=== PATIENT | female | born 1935 | race Native Hawaiian/Other Pacific Islander ===

== ENCOUNTER 2016-06-21 15:13 | Outpatient (CLI) | payer OTHER ==
[~2016-06-21 15:13] MED LIST: CELEBREX200 MG PO; LEVO0.08 PO; LISI5TAB10 PO; LYRICA75 MG OR; OMEP20CA PO; TRIM800T12 PO
[2016-08-24] MEDS ORDERED: TEMA30CA18 PO (14:12)
[2016-08-24] MEDS ORDERED: DYMISTA1 SPR (14:13)
[2016-08-24] MEDS ORDERED: DONE5TAB PO (14:14)
[2016-08-24] MEDS ORDERED: NUCYNTA50 MG PO (14:25)
[2016-08-24] MEDS ORDERED: DITROPAN XL10 MG PO (14:26)
[2016-08-24] MEDS ORDERED: ESTR0.6211 VAG (14:28)
[2016-08-25] MEDS ORDERED: CELEBREX200 MG PO (12:07)
[2016-08-25] MEDS ORDERED: LISI5TAB10 PO (12:08)
[2016-08-25] MEDS ORDERED: LYRICA75 MG PO (12:08)
[2016-08-25] MEDS ORDERED: OMEP20CA PO (12:11)
== END 2016-06-21 19:21 | disposition home or self-care (01) ==
LOC: LAB 15:13
DX: N39.0 Urinary tract infection, site not specified (principal)
CPT/HCPCS: 87077; 87086; 87088; 87186

== ENCOUNTER 2016-07-05 13:34 | Outpatient (CLI) | payer OTHER ==
[2016-08-24] MEDS ORDERED: TEMA30CA18 PO (14:12)
[2016-08-24] MEDS ORDERED: DYMISTA1 SPR (14:13)
[2016-08-24] MEDS ORDERED: DONE5TAB PO (14:14)
[2016-08-24] MEDS ORDERED: NUCYNTA50 MG PO (14:25)
[2016-08-24] MEDS ORDERED: DITROPAN XL10 MG PO (14:26)
[2016-08-24] MEDS ORDERED: ESTR0.6211 VAG (14:28)
[2016-08-25] MEDS ORDERED: CELEBREX200 MG PO (12:07)
[2016-08-25] MEDS ORDERED: LISI5TAB10 PO (12:08)
[2016-08-25] MEDS ORDERED: LYRICA75 MG PO (12:08)
[2016-08-25] MEDS ORDERED: OMEP20CA PO (12:11)
== END 2016-07-05 19:40 | disposition home or self-care (01) ==
LOC: LAB 13:34
DX: N39.0 Urinary tract infection, site not specified (principal)
CPT/HCPCS: 87077; 87086; 87088; 87186

== ENCOUNTER 2016-07-10 10:04 | Outpatient (CLI) | payer OTHER ==
[2016-08-24] MEDS ORDERED: TEMA30CA18 PO (14:12)
[2016-08-24] MEDS ORDERED: DYMISTA1 SPR (14:13)
[2016-08-24] MEDS ORDERED: DONE5TAB PO (14:14)
[2016-08-24] MEDS ORDERED: NUCYNTA50 MG PO (14:25)
[2016-08-24] MEDS ORDERED: DITROPAN XL10 MG PO (14:26)
[2016-08-24] MEDS ORDERED: ESTR0.6211 VAG (14:28)
[2016-08-25] MEDS ORDERED: CELEBREX200 MG PO (12:07)
[2016-08-25] MEDS ORDERED: LYRICA75 MG PO (12:08)
[2016-08-25] MEDS ORDERED: LISI5TAB10 PO (12:08)
[2016-08-25] MEDS ORDERED: OMEP20CA PO (12:11)
== END 2016-07-10 19:24 | disposition home or self-care (01) ==
LOC: LABW 10:04
PROVIDERS: Internal Medicine Cardiovascular Disease
DX: E78.4 Other hyperlipidemia (principal); Z09 Encounter for follow-up examination after completed treatment for conditions other than malignant neoplasm
CPT/HCPCS: 36415; 80061; 80076

== ENCOUNTER 2016-08-23 16:16 | Outpatient (CLI) | payer OTHER ==
[2016-08-24] MEDS ORDERED: TEMA30CA18 PO (14:12)
[2016-08-24] MEDS ORDERED: DYMISTA1 SPR (14:13)
[2016-08-24] MEDS ORDERED: DONE5TAB PO (14:14)
[2016-08-24] MEDS ORDERED: NUCYNTA50 MG PO (14:25)
[2016-08-24] MEDS ORDERED: DITROPAN XL10 MG PO (14:26)
[2016-08-24] MEDS ORDERED: ESTR0.6211 VAG (14:28)
[2016-08-25] MEDS ORDERED: CELEBREX200 MG PO (12:07)
[2016-08-25] MEDS ORDERED: LISI5TAB10 PO (12:08)
[2016-08-25] MEDS ORDERED: LYRICA75 MG PO (12:08)
[2016-08-25] MEDS ORDERED: OMEP20CA PO (12:11)
== END 2016-08-23 16:18 | disposition short-term general hospital (02) ==
LOC: AMB 16:16
DX: R07.89 Other chest pain (principal)
CPT/HCPCS: A0425; A0429

== ENCOUNTER 2016-08-23 16:32 | Inpatient (IN) | payer OTHER ==
[~2016-08-23] VITALS: Ht 165.1 cm; Wt 47.8 kg
[2016-08-23 18:37] LABS: PLATELET COUNT 192 K/uL (152-353)
[2016-08-23 19:04] LABS: POTASSIUM 3.5 mmol/L (3.6-5.2); SODIUM 137 mmol/L (136-145)
[2016-08-23 19:42] VITALS: BP 156/69; TEMP 97.9; Ht 165.1 cm; Wt 47.8 kg
[2016-08-23 20:00] VITALS: BP 141/75; TEMP 98.2
[2016-08-24] VITALS (17 sets, daily range): BP systolic 121–166; BP diastolic 59–82; TEMP 97–98.3
--- NOTE | 2016-08-24 04:30 | NUR ---
81 Y.O. FEMALE RECEIVED VIA BED TO ICU BED 3 FROM MEDICAL SURGICAL FLOOR. PT WITH DIAGNOSIS OF ACUTE DYSNEA AND CHEST PAIN. DR. BLAS AT BEDSIDE. MONITORS APPLIED.
--- NOTE | 2016-08-24 04:35 | NUR ---
RADIOLOGY PRESENT FOR CHEST X-RAY.
[2016-08-24 04:43] LABS: POTASSIUM 3.6 mmol/L (3.6-5.2); SODIUM 138 mmol/L (136-145)
--- NOTE | 2016-08-24 04:55 | NUR ---
ATIVAN 0.5MG IV ORDERED.
--- NOTE | 2016-08-24 05:17 | NUR ---
SISTER AT BEDSIDE. DR. BLAS TALKING WITH PT AND SISTER. ORDER RECEIVED.
--- NOTE | 2016-08-24 05:45 | NUR ---
IV BOLUS OF 250CC'S NORMAL SALINE INITIATED.
--- NOTE | 2016-08-24 05:50 | NUR ---
08/24/16 AT 0340PT CALLED AND STATES SHE IS FEELING FAINT, WEAK, AND WOKE UP FEELING LIKE HER HEART IS RACING. PT ALERT AND ORIENTED WITH NO ACUTE DISTRES NOTED. 144/79, PULSE 62, RESP RATE 20 EVEN/NONLABORED, 99% ON 2LPM VIA NC. PT GOT UP TO BATHROOM AROUND 0350 AND PULSE RATE GOT SLIGHTLY TACHYCARDIC AT 103-110 BUT PULSE RATE BACK IN HIGH 50S AND LOW 60S ONCE PT BACK IN BED. LUNG CLEAR TO AUSCULTATION. CONTINUING TO MONITOR.
--- NOTE | 2016-08-24 05:53 | NUR ---
08/24/16 AT 0352PT STATES SHE IS FEELING BETTER, WILL CONTINUE TO MONITOR.
--- NOTE | 2016-08-24 05:54 | NUR ---
08/24/16 AT 0405DRMauricio BLAS IN ER NOTIFIED DUE TO PT FEELING BAD AGAIN, STATES SHE FEELS LIKE SHE IS GOING TO PASS OUT AND LIKE SHE IS "GOING TO ", PULSE RATE REMAINS IN HIGH 50S TO LOW 60S, WITH NO OTHER CHANGES NOTED.
--- NOTE | 2016-08-24 05:55 | NUR ---
08/24/16 AT 0410DRMauricio BLAS AT BEDSIDE ASSESSING PT. WAITING FOR NEW ORDERS.
--- NOTE | 2016-08-24 05:56 | NUR ---
08/24/16 AT 0418DR. BLAS BACK AT BEDSIDE AGAIN WITH PT. STATES SHE IS HAVING CHEST PAIN THAT FEELS LIKE "PRESSURE" IN CENTER OF HER CHEST, RATES PAIN A "7" AND CONSTANT. STAFF REMAIN AT BEDSIDE. 0425 DR REMAINS AT BEDSIDE AND RESP ATTEMPTING ABG PER NEW ORDERS. NEW ORDERS WRITTEN PER DR. BLAS. WILL CONTINUE TO MONITOR.
--- NOTE | 2016-08-24 05:59 | NUR ---
08/24/16 AT 0430PT MOVED TO ICU BED [address] PER NEW ORDERS OF DR. BLAS. REPORT GIVEN TO ROVERTO PEREZ RN AND SOFIA DEMPSEY RN.
--- NOTE | 2016-08-24 06:14 | NUR ---
TO BEDSIDE COMMODE. UA SPECIMEN OBTAINED. TO LAB.
--- NOTE | 2016-08-24 08:46 | NUR ---
AM ASSESSEMENT PT RESTING IN BED DENIES CHEST PAINS, STATES " I JUST FEEL A LITTLE FUNNY IN MY CHEST" MONITOR SHOWING NSR HR 54. RESP EVEN UNLABORED CLEAR. FAMILY MEMBERS HERE TO VISIT.
[2016-08-24 10:29] LABS: PLATELET COUNT 176 K/uL (152-353)
[2016-08-24 10:59] LABS: POTASSIUM 3.8 mmol/L (3.6-5.2)
--- NOTE | 2016-08-24 11:20 | NUR ---
PT RESTING IN BED NO COMPLAINTS. DR THOMPSON VISITED CHECKED PT RECIEVED ORDERS.
--- NOTE | 2016-08-24 12:10 | NUR ---
DR THOMPSON SPOKE WITH FAMILY MEMBERS.
--- NOTE | 2016-08-24 14:05 | NUR ---
RESTING QUIETLY FAMILY FRIENDS VISITED. NO COMPLAINTS.
[2016-08-24] MEDS ORDERED: TEMA30CA18 PO ×2 (14:12)
[2016-08-24] MEDS ORDERED: DYMISTA1 SPR ×2 (14:13)
[2016-08-24] MEDS ORDERED: DONE5TAB PO ×2 (14:14)
[2016-08-24] MEDS ORDERED: NUCYNTA50 MG PO ×2 (14:25)
[2016-08-24] MEDS ORDERED: DITROPAN XL10 MG PO ×2 (14:26)
[2016-08-24] MEDS ORDERED: ESTR0.6211 VAG ×2 (14:28)
--- NOTE | 2016-08-24 18:18 | NUR ---
PT STABLE TO CT VIA WC.
--- NOTE | 2016-08-24 18:25 | NUR ---
PT STABLE BACK FROM CT VIA WC & TO BSC AT .
--- NOTE | 2016-08-24 19:51 | NUR ---
REPORTED PT'S CT OF CHEST RESULTS TO DR. THOMPSON. NO NEW ORDERS RECEIVED.
--- NOTE | 2016-08-24 20:01 | NUR ---
PT VOIDED 500 ML OF CLEAR NATHAN URINE. SPECIMAN COLLECTED AND SENT TO THE LAB.
--- NOTE | 2016-08-24 21:12 | NUR ---
PT UOB WITH ASSISTANCE TO BSC. PT VOIDED 500 ML OF YELLOW URINE.
[2016-08-25] VITALS (11 sets, daily range): BP systolic 133–167; BP diastolic 70–77; TEMP 97.8
--- NOTE | 2016-08-25 03:03 | NUR ---
PT UOB TO BSC. VOIDED AND THEN BACK TO BED WITH ASSISTANCE. NO COMPLAINTS VOICED,
--- NOTE | 2016-08-25 06:19 | NUR ---
05:25AM WITNESS OT WITH SNORING RESPIRATIONS , EYE JERKING AND PT GRINDING HIS TEETH. O2 SATS DROPPING . ANNE CHONG RN BEGAN AMBUING PT AND LAB PRESENT TO DRAW BLOOD. THIS EVENT REPORTED TO ER PHYSICIAN. ATIVAN 2 MG IVSP GIVEN. SEIZURE LIKE ACTIVITY STOPPED AT 05:28AM. O2 SAT 89 INCREASED TO 93 PERCENT. BP 142/72.
[2016-08-25 06:39] LABS: PLATELET COUNT 161 K/uL (152-353)
--- NOTE | 2016-08-25 08:00 | NUR ---
AM ASSESSMENT COMPLETE.
[2016-08-25] MEDS ORDERED: CELEBREX200 MG PO ×2 (12:07)
[2016-08-25] MEDS ORDERED: LYRICA75 MG PO ×2 (12:08)
[2016-08-25] MEDS ORDERED: LISI5TAB10 PO ×2 (12:08)
[2016-08-25] MEDS ORDERED: OMEP20CA PO ×2 (12:11)
--- NOTE | 2016-08-25 13:05 | NUR ---
DR THOMPSON AT BS
--- NOTE | 2016-08-25 13:24 | NUR ---
MARIPOSA TAVAREZ RN AT BS
--- NOTE | 2016-08-25 13:29 | NUR ---
TB TEST ADMINISTERED BY MARIPOSA HODGE RN TO [facility]
--- NOTE | 2016-08-25 17:45 | NUR ---
FAMILY AT BS
--- NOTE | 2016-08-25 17:50 | NUR ---
PT UP TO BSC.
--- NOTE | 2016-08-25 18:47 | NUR ---
PT TRANSFERRED TO #1120. PT ALERT/ORIENTED
--- NOTE | 2016-08-25 18:47 | NUR ---
IV SITE INTACT, NS @ 100ML/HR
[2016-08-26] VITALS: BP 135/72; TEMP 97.9
--- NOTE | 2016-08-26 01:54 | NUR ---
Pt. C/O CHESTPAIN THAT FEELS LIKE PRESSURE. Pt. HURTING THROUGH TO BACK. 0156 DDR. WAN NOTFIED. NEW ORDER RECEIVED. MOSPHINE 2MG GIVEN IV, ATIVAN 0.5MG GIVEN IV, ZOFRAN 4MG GIVEN IV.
[2016-08-26 04:00] VITALS: BP 155/79; TEMP 98.4
[2016-08-26 05:42] LABS: PLATELET COUNT 156 K/uL (152-353)
[2016-08-26 05:50] LABS: POTASSIUM 3.8 mmol/L (3.6-5.2); SODIUM 141 mmol/L (136-145)
[2016-08-26 08:00] VITALS: BP 167/78; TEMP 98.6
[2016-08-26 12:00] VITALS: BP 147/72; TEMP 97.8
--- NOTE | 2016-08-26 16:54 | NUR ---
@1405 PT SITTING 02 ON ROOM AIR 98-100%, WALKING DOWN HALLWAY 96-100%, AND SITTING ON SIDE OF BED WITH O2@2 100% IV D/C'D TIP INTACT WITHOUT REDNESS OR EDEMA NOTED, D/C INSTRUCTIONS GIVEN, PT DAUGHTER AT BEDSIDE, BOTH STATED UNDERSTANDING OF D/C INSTRUCTIONS. PRESCRIPTIONS GIVEN TO PATIENT. PT DISCHARGED TO HOME@ 1425, TAKEN BY WC ACCOMPANIED BY FAMILY MEMBER AND HEAVEN BURT
== END 2016-08-26 14:15 | disposition home or self-care (01) | DRG 178 ==
LOC: MED/SURG 16:32 → ICU 16:32 → MED/SURG 08-24 04:35 → ICU 08-24 04:35 → MED/SURG 08-24 04:35
PROVIDERS: Emergency Medicine; Specialist; ADMIT Internal Medicine
DX: A31.0 Pulmonary mycobacterial infection (principal); J44.1 Chronic obstructive pulmonary disease with (acute) exacerbation; R07.89 Other chest pain; E11.9 Type 2 diabetes mellitus without complications; I10 Essential (primary) hypertension; R00.1 Bradycardia, unspecified; E03.8 Other specified hypothyroidism; E83.42 Hypomagnesemia; F45.8 Other somatoform disorders; E88.09 Other disorders of plasma-protein metabolism, not elsewhere classified; D64.89 Other specified anemias
CPT/HCPCS: 36415; 36600; 80048; 80053; 80307; 81000; 82550; 82805; 83735; 83880; 84439; 84443; 84484; 85027; 85379; 85610; 85730; 86430; 93005; 94760; 96372; G0479; J1650; J2060; J2270; J2405; J3490; Q9963

== ENCOUNTER 2016-08-31 17:13 | Observation (INO) | payer OTHER ==
[~2016-08-31] VITALS: Ht 165.1 cm; Wt 46.4 kg
[~2016-08-31 17:13] MED LIST changes: +DITROPAN XL10 MG PO; +DONE5TAB PO; +DYMISTA1 SPR; +ESTR0.6211 VAG; +LYRICA75 MG PO; +NUCYNTA50 MG PO; +TEMA30CA18 PO
[2016-08-31 17:20] VITALS: BP 185/91; TEMP 98
[2016-08-31 18:42] LABS: PLATELET COUNT 188 K/uL (152-353)
[2016-08-31 18:43] LABS: SODIUM 126 mmol/L (136-145)
--- NOTE | 2016-08-31 20:50 | NUR ---
Received pt from ER via wheelchair. Report given from Radha Dickinson RN. Pt alert and oriented. No distress noted. Denies pain. NS infusing at 100cc/hr. Assessment completed. Bed in lowest position. Call light within reach. Will continue to monitor.
[2016-08-31 21:44] VITALS: BP 150/79; TEMP 98
[2016-09-01] VITALS: BP 126/69; TEMP 98.8
[2016-09-01 04:00] VITALS: BP 146/76; TEMP 97.8
--- NOTE | 2016-09-01 04:59 | NUR ---
Pt resting in bed. No distress noted. Denies pain. Will continue to monitor.
[2016-09-01 05:54] LABS: PLATELET COUNT 176 K/uL (152-353)
[2016-09-01 06:01] LABS: POTASSIUM 3.9 mmol/L (3.6-5.2)
[2016-09-01 08:00] VITALS: BP 125/68; TEMP 97.9
--- NOTE | 2016-09-01 08:00 | NUR ---
RESTING IN BED HOB UP STATES FEELING BETTER. STATED THAT SHE HAD JUST COME TO HOSPITAL FOR CT SCAN. DENIES PAIN. IV FLUIDS INFUSING WITHOUT DIFFICULTY. PT APPEARS IN NO DISTRESS, AM CARE DONE OFFERED TO ASSIST WITH BRERAKFAST PT NOT EATING STATED THAT SHE WAS NOT HUNGERY. ABD FLAT BOWEL SOUNDS PRESENT.
[2016-09-01 12:00] VITALS: BP 125/68; TEMP 97.9
--- NOTE | 2016-09-01 13:45 | NUR ---
RESTING IN BED TALKING ON PHONE NO ACUTE DISTRESS.. DR THOMPSON VISITED. RECIEVED ORDER FOR URINE CULTURE.
[2016-09-01 15:23] VITALS: BP 158/94; TEMP 98.5
[2016-09-01 20:00] VITALS: BP 129/66; TEMP 98.6
--- NOTE | 2016-09-01 23:07 | NUR ---
PT UP WITH ASSISTANCE TO BR. PT VOIDED. PT STATES THAT SHE HAD A SLEEVE PUT IN FOR URINARY INCONTINENCE. PT VOICED SHE STILL CONTINUES TO DRIBBLE URINE. PROVIDED [employer] FOR PT. ASSISTED PT BACK TO BED. PT WITH NO COMPLAINTS.
[2016-09-02] VITALS: BP 141/81; TEMP 98.5
--- NOTE | 2016-09-02 02:45 | NUR ---
PT WAS GIVEN ORDERED XANAX PO AT 02:00 AM. BED IS I LOW POSITION AND CALL LIGHT IN EASY REACH. INSTRUCTED PT TO CALL FOR ASSISTANCE.
[2016-09-02 04:00] VITALS: BP 119/74; TEMP 97.6
--- NOTE | 2016-09-02 06:00 | NUR ---
PT STATES SHE NOT RESTED WELL TONIGHT. "BEEN UP USING THE BATHROOM ALL NIGHT". DENIES DIZZINESS AT THIS TIME.
--- NOTE | 2016-09-02 07:55 | NUR ---
PT RESTING IN LOW FOWLERS,DENIES DIZZINESS OR PAIN. LABS DRAWN.
[2016-09-02 08:00] VITALS: BP 140/69; TEMP 97.7
[2016-09-02 08:02] LABS: PLATELET COUNT 184 K/uL (152-353)
[2016-09-02 08:20] LABS: SODIUM 137 mmol/L (136-145)
--- NOTE | 2016-09-02 08:51 | NUR ---
LABS DRAWN & TO LABS. PT PLEASANT. DENIES PAIN OR DIZZINESS.
[2016-09-02 12:13] VITALS: BP 127/88; TEMP 97.7
--- NOTE | 2016-09-02 14:45 | NUR ---
DR THOMPSON IN TO SEE PT. PT PLEASANT,'WANTS TO GO HOME.'
--- NOTE | 2016-09-02 15:00 | NUR ---
PT'S IV BEEPING REPEATEDLY.PLACEMENT CK,GOOD BLOOD RETURN. IV IS IN R AC. PT REFUSED TO HAVE NEW IV STARTED,DR THOMPSON NOTIFIED. IV SALINE LOCKED.
--- NOTE | 2016-09-02 16:47 | NUR ---
D/C INSTRUCTIONS GIVEN. PT & DAUGHTER VERBALIZED UNDERSTANDING. IVSALINE LOCK D/C'D CANNULA INTACT.SITE SECURED.
--- NOTE | 2016-09-02 16:50 | NUR ---
PT D/CD STABLE VIA WC TO PRIVATE AUTO PER RAINE ANTUNEZ.
== END 2016-09-02 16:52 | disposition home or self-care (01) ==
LOC: ED 17:13 → MED/SURG 19:25
PROVIDERS: Emergency Medicine; ADMIT Emergency Medicine
DX: R49.22 Hyponasality (principal); R07.89 Other chest pain; R41.82 Altered mental status, unspecified; I10 Essential (primary) hypertension; J44.9 Chronic obstructive pulmonary disease, unspecified; K21.9 Gastro-esophageal reflux disease without esophagitis; E11.9 Type 2 diabetes mellitus without complications; R62.7 Adult failure to thrive; N39.0 Urinary tract infection, site not specified; R91.8 Other nonspecific abnormal finding of lung field
CPT/HCPCS: 36415; 80048; 80053; 81000; 82550; 83735; 84443; 84484; 85027; 87040; 87077; 87086; 87088; 87185; 87186; 93005; 96361; 96365; 96366; 96372; 99220; 99284; G0378; J0696; J1650; J3475; J3480

== ENCOUNTER 2016-09-07 12:49 | Outpatient (CLI) | payer OTHER | END 2016-09-07 19:49 | disposition home or self-care (01) | LOC: RESP 12:49 | DX: R06.02 Shortness of breath (principal) ==

== ENCOUNTER 2016-10-30 10:34 | Outpatient (CLI) | payer OTHER | END 2016-10-30 11:40 | disposition home or self-care (01) | LOC: RAD 10:34 | DX: M25.561 Pain in right knee (principal) ==

== ENCOUNTER 2016-11-01 10:39 | Outpatient (CLI) | payer OTHER | END 2016-11-01 19:15 | disposition home or self-care (01) | LOC: MRI 10:39 | DX: M25.561 Pain in right knee (principal) ==

== ENCOUNTER 2017-08-15 09:07 | Outpatient (CLI) | payer OTHER | END 2017-08-15 21:38 | disposition home or self-care (01) | LOC: RAD 09:07 | DX: Z78.0 Asymptomatic menopausal state (principal); M85.88 Other specified disorders of bone density and structure, other site ==

== ENCOUNTER 2017-09-01 08:53 | Outpatient (CLI) | payer OTHER ==
[2017-09-01 09:25] LABS: POTASSIUM 4.2 mmol/L (3.6-5.2)
== END 2017-09-01 23:04 | disposition home or self-care (01) ==
LOC: LABW 08:53
PROVIDERS: Internal Medicine Cardiovascular Disease
DX: E78.4 Other hyperlipidemia (principal)
CPT/HCPCS: 36415; 80048

== ENCOUNTER 2017-10-17 11:05 | Outpatient (CLI) | payer OTHER | END 2017-10-17 22:07 | disposition home or self-care (01) | LOC: RAD 11:05 | DX: R05 Cough (principal); Z20.1 Contact with and (suspected) exposure to tuberculosis ==

== ENCOUNTER 2018-02-07 11:07 | Outpatient (CLI) | payer OTHER | END 2018-02-07 19:42 | disposition home or self-care (01) | LOC: CT 11:07 | DX: R10.84 Generalized abdominal pain (principal) | CPT/HCPCS: 36415; 82565; 84520; Q9963 ==

== ENCOUNTER 2018-05-03 16:19 | Outpatient (CLI) | payer OTHER | END 2018-05-03 16:39 | disposition short-term general hospital (02) | LOC: AMB 16:19 | DX: M25.551 Pain in right hip (principal); Z91.81 History of falling | CPT/HCPCS: A0425; A0427 ==

== ENCOUNTER 2018-05-03 16:39 | Emergency (ER) | payer OTHER ==
[~2018-05-03] VITALS: Ht 165.1 cm; Wt 44.5 kg
[2018-05-03 21:38] VITALS: BP 150/84; TEMP 97.8
== END 2018-05-03 21:35 | disposition short-term general hospital (02) ==
LOC: ED 16:39
DX: S72.011A Unspecified intracapsular fracture of right femur, initial encounter for closed fracture (principal); W18.39XA Other fall on same level, initial encounter; Y92.89 Other specified places as the place of occurrence of the external cause
CPT/HCPCS: 99285; J2270; J2405

== ENCOUNTER 2018-05-03 21:41 | Outpatient (CLI) | payer OTHER | END 2018-05-03 22:56 | disposition short-term general hospital (02) | LOC: AMB 21:41 | DX: S72.011A Unspecified intracapsular fracture of right femur, initial encounter for closed fracture (principal); W18.39XA Other fall on same level, initial encounter; Y92.89 Other specified places as the place of occurrence of the external cause | CPT/HCPCS: A0425; A0429 ==

== ENCOUNTER 2018-05-29 11:11 | Outpatient (CLI) | payer OTHER | END 2018-05-29 23:59 | disposition home or self-care (01) | LOC: CT 11:11 | DX: G45.9 Transient cerebral ischemic attack, unspecified (principal) | CPT/HCPCS: 36415; 82565; 84520; Q9963 ==

== ENCOUNTER 2018-05-30 11:50 | Outpatient (CLI) | payer OTHER ==
[2018-05-30 13:06] LABS: PLATELET COUNT 366 K/uL (152-353)
[2018-05-30 13:31] LABS: POTASSIUM 4.3 mmol/L (3.6-5.2)
== END 2018-05-30 20:35 | disposition home or self-care (01) ==
LOC: LABW 11:50
PROVIDERS: Internal Medicine
DX: M79.89 Other specified soft tissue disorders (principal); R62.7 Adult failure to thrive; R82.90 Unspecified abnormal findings in urine; R73.9 Hyperglycemia, unspecified; Z79.899 Other long term (current) drug therapy; D64.9 Anemia, unspecified
CPT/HCPCS: 36415; 80053; 81000; 83540; 83735; 84443; 85027; 85379; 85651; 87077; 87086; 87088; 87185; 87186

== ENCOUNTER 2018-05-31 08:49 | Outpatient (CLI) | payer OTHER | END 2018-05-31 09:04 | disposition short-term general hospital (02) | LOC: AMB 08:49 | DX: R55 Syncope and collapse (principal) | CPT/HCPCS: A0425; A0427 ==

== ENCOUNTER 2018-05-31 09:09 | Emergency (ER) | payer OTHER ==
[~2018-05-31] VITALS: Ht 165.1 cm; Wt 44.5 kg
[2018-05-31 10:08] LABS: POTASSIUM 3.9 mmol/L (3.6-5.2)
[2018-05-31 10:18] LABS: PLATELET COUNT 264 K/uL (152-353)
[2018-05-31 17:56] VITALS: BP 102/47; TEMP 98
== END 2018-05-31 18:06 | disposition short-term general hospital (02) ==
LOC: ED 09:09
PROVIDERS: Emergency Medicine
DX: R55 Syncope and collapse (principal); N39.0 Urinary tract infection, site not specified; R53.1 Weakness
CPT/HCPCS: 80053; 85027; 93005; 96360; 96361; 99284

== ENCOUNTER 2018-05-31 18:12 | Outpatient (CLI) | payer OTHER | END 2018-05-31 19:23 | disposition short-term general hospital (02) | LOC: AMB 18:12 | DX: R55 Syncope and collapse (principal); N39.0 Urinary tract infection, site not specified; R53.1 Weakness | CPT/HCPCS: A0425; A0427 ==

== ENCOUNTER 2018-06-04 14:11 | Inpatient (IN) | payer OTHER ==
[~2018-06-04] VITALS: Ht 154.9 cm; Wt 47.6 kg
[2018-06-04 14:13] VITALS: BP 120/65; TEMP 97.5
[2018-06-04 15:57] LABS: PLATELET COUNT 173 K/uL (152-353); POTASSIUM 3.3 mmol/L (3.6-5.2); SODIUM 139 mmol/L (136-145)
[2018-06-04 18:54] LABS: PARTIAL THROMBOPLASTIN TIME 27.7 SECONDS (24.5-33.6)
[2018-06-04 21:58] VITALS: BP 97/50
[2018-06-05 00:31] VITALS: BP 104/58; TEMP 98.4; Ht 154.9 cm; Wt 47.6 kg
[2018-06-05 04:13] LABS: PLATELET COUNT 153 K/uL (152-353)
[2018-06-05 04:27] LABS: POTASSIUM 4.8 mmol/L (3.6-5.2)
[2018-06-05 06:00] VITALS: BP 134/70
[2018-06-05 07:00] VITALS: BP 134/67; TEMP 98.3
[2018-06-05 09:00] VITALS: BP 124/70
== END 2018-06-05 09:45 | disposition short-term general hospital (02) | DRG 176 ==
LOC: ED 14:11 → ICU 21:41
PROVIDERS: Family Medicine; ADMIT Internal Medicine
DX: I26.99 Other pulmonary embolism without acute cor pulmonale (principal); Z96.641 Presence of right artificial hip joint; I25.10 Atherosclerotic heart disease of native coronary artery without angina pectoris; I10 Essential (primary) hypertension; E78.49 Other hyperlipidemia; J44.9 Chronic obstructive pulmonary disease, unspecified; E03.8 Other specified hypothyroidism; E11.9 Type 2 diabetes mellitus without complications; I48.0 Paroxysmal atrial fibrillation; G31.84 Mild cognitive impairment of uncertain or unknown etiology; E83.42 Hypomagnesemia
CPT/HCPCS: 36415; 80053; 81000; 82272; 82550; 83735; 84484; 85027; 85379; 85610; 85730; 93005; 96361; 96365; 96375; 99285; J1644; J3490; Q9963

== ENCOUNTER 2018-06-05 09:40 | Outpatient (CLI) | payer OTHER | END 2018-06-05 10:52 | disposition short-term general hospital (02) | LOC: AMB 09:40 | DX: I26.99 Other pulmonary embolism without acute cor pulmonale (principal); Z96.641 Presence of right artificial hip joint; I25.10 Atherosclerotic heart disease of native coronary artery without angina pectoris; I10 Essential (primary) hypertension; E78.49 Other hyperlipidemia; J44.9 Chronic obstructive pulmonary disease, unspecified; E03.8 Other specified hypothyroidism; E11.9 Type 2 diabetes mellitus without complications; I48.0 Paroxysmal atrial fibrillation; G31.84 Mild cognitive impairment of uncertain or unknown etiology; E83.42 Hypomagnesemia | CPT/HCPCS: A0425; A0427 ==

== ENCOUNTER 2018-06-18 16:13 | Outpatient (CLI) | payer OTHER | END 2018-06-18 23:56 | disposition home or self-care (01) | LOC: LAB 16:13 | DX: N39.0 Urinary tract infection, site not specified (principal) | CPT/HCPCS: 87077; 87086; 87088; 87186 ==

== ENCOUNTER 2018-06-26 10:34 | Outpatient (CLI) | payer OTHER ==
[2018-06-26 11:02] LABS: POTASSIUM 4.2 mmol/L (3.6-5.2)
[2018-06-26 11:03] LABS: PLATELET COUNT 336 K/uL (152-353)
== END 2018-06-26 19:10 | disposition home or self-care (01) ==
LOC: LABW 10:34
PROVIDERS: Internal Medicine
DX: I10 Essential (primary) hypertension (principal); N39.0 Urinary tract infection, site not specified
CPT/HCPCS: 80053; 83735; 85027; 87077; 87086; 87088; 87186

== ENCOUNTER 2018-07-03 11:56 | Outpatient (CLI) | payer OTHER | END 2018-07-03 23:12 | disposition home or self-care (01) | LOC: LABW 11:56 | DX: R53.81 Other malaise (principal); R53.83 Other fatigue | CPT/HCPCS: 36415; 85651; 86038; 86141; 86431 ==

== ENCOUNTER 2018-10-01 08:40 | Outpatient (CLI) | payer OTHER ==
[~2018-10-01 08:40] MED LIST changes: +ASPIRIN 81 LOW81 MG PO; +CENTRUM SILVER PO; +DILT30TA24 PO; +DOCU100C10 PO; +DONEPEZIL HYDRO10 M1 PO; +FENT25DI TD; +MECLIZINE12.5 MG PO; +PANTOPRAZOLE 40MG TA PO
== END 2018-10-01 19:00 | disposition home or self-care (01) ==
LOC: CT 08:40
DX: R10.84 Generalized abdominal pain (principal)
CPT/HCPCS: 36415; 82565; 84520

== ENCOUNTER 2018-12-31 09:01 | Outpatient (CLI) | payer OTHER ==
[2018-12-31 09:54] LABS: PLATELET COUNT 249 K/uL (152-353)
[2018-12-31 10:12] LABS: POTASSIUM 3.9 mmol/L (3.6-5.2)
== END 2018-12-31 23:16 | disposition home or self-care (01) ==
LOC: LABW 09:01
PROVIDERS: Internal Medicine
DX: R29.6 Repeated falls (principal); F03.90 Unspecified dementia, unspecified severity, without behavioral disturbance, psychotic disturbance, mood disturbance, and anxiety; E03.8 Other specified hypothyroidism
CPT/HCPCS: 36415; 80053; 80061; 84439; 84443; 85027

== ENCOUNTER 2019-02-05 12:21 | Outpatient (CLI) | payer OTHER | END 2019-02-05 23:31 | disposition home or self-care (01) | LOC: RAD 12:21 | DX: M79.672 Pain in left foot (principal) ==

== ENCOUNTER 2019-02-09 04:24 | Outpatient (CLI) | payer OTHER | END 2019-02-09 04:39 | disposition short-term general hospital (02) | LOC: AMB 04:24 | DX: M54.5 Low back pain (principal); M25.561 Pain in right knee; W18.39XA Other fall on same level, initial encounter; Y92.018 Other place in single-family (private) house as the place of occurrence of the external cause | CPT/HCPCS: A0425; A0429 ==

== ENCOUNTER 2019-02-09 04:47 | Emergency (ER) | payer OTHER ==
[~2019-02-09] VITALS: Ht 157.5 cm; Wt 44.5 kg
[2019-02-09 05:23] LABS: PLATELET COUNT 189 K/uL (152-353)
[2019-02-09 05:32] LABS: POTASSIUM 3.7 mmol/L (3.6-5.2)
[2019-02-09 07:15] VITALS: BP 143/65; TEMP 98.1
== END 2019-02-09 07:44 | disposition home or self-care (01) ==
LOC: ED 04:47
PROVIDERS: Emergency Medicine
DX: F03.90 Unspecified dementia, unspecified severity, without behavioral disturbance, psychotic disturbance, mood disturbance, and anxiety (principal); R42 Dizziness and giddiness; R00.1 Bradycardia, unspecified; Z91.81 History of falling; Z79.899 Other long term (current) drug therapy; W18.39XA Other fall on same level, initial encounter; Y92.89 Other specified places as the place of occurrence of the external cause
CPT/HCPCS: 80053; 81000; 85027; 87077; 87086; 87088; 87186; 93005; 99283

== ENCOUNTER 2019-03-18 10:10 | Outpatient (CLI) | payer OTHER | END 2019-03-18 20:19 | disposition home or self-care (01) | LOC: US 10:10 | DX: R10.13 Epigastric pain (principal) ==

== ENCOUNTER 2019-05-16 10:25 | Outpatient (CLI) | payer OTHER ==
[2019-05-16 10:42] LABS: PLATELET COUNT 237 K/uL (152-353)
[2019-05-16 11:22] LABS: POTASSIUM 4.1 mmol/L (3.6-5.2)
== END 2019-05-16 19:39 | disposition home or self-care (01) ==
LOC: LABW 10:25
PROVIDERS: Internal Medicine
DX: E03.8 Other specified hypothyroidism (principal); Z79.899 Other long term (current) drug therapy
CPT/HCPCS: 36415; 80053; 80061; 81000; 84439; 84443; 85027; 87077; 87086; 87088; 87186

== ENCOUNTER 2019-06-09 13:29 | Inpatient (IN) | payer OTHER ==
[~2019-06-09] VITALS: Ht 154.9 cm; Wt 51.5 kg
[2019-06-09 13:46] VITALS: BP 91/64; TEMP 97.9
[2019-06-09 15:17] LABS: PLATELET COUNT 185 K/uL (152-353)
[2019-06-09 20:00] VITALS: BP 143/69; TEMP 98.3
[2019-06-10] VITALS (8 sets, daily range): BP systolic 108–157; BP diastolic 63–78; TEMP 97.9–99.1; Ht 154.9 cm; Wt 51.5 kg
[2019-06-10] MEDS ORDERED: B12 FAST DIS5000 MCG PO (02:57)
[2019-06-10] MEDS ORDERED: D32000 UNI1 PO (02:58)
[2019-06-10] MEDS ORDERED: OMEGA 3 500 5001 CAP PO (03:01)
[2019-06-10] MEDS ORDERED: PROPRANOLOL10 MG PO (03:03)
[2019-06-10] MEDS ORDERED: GINKGO BILOB120 M1 PO (03:03)
[2019-06-10 09:13] LABS: PLATELET COUNT 155 K/uL (152-353)
[2019-06-10 11:01] LABS: POTASSIUM 3.6 mmol/L (3.6-5.2)
[2019-06-11] VITALS (7 sets, daily range): BP systolic 107–161; BP diastolic 51–83; TEMP 97.8–98.1
[2019-06-11 06:44] LABS: PLATELET COUNT 168 K/uL (152-353)
[2019-06-11 07:08] LABS: POTASSIUM 3.8 mmol/L (3.6-5.2)
[2019-06-12 03:51] VITALS: BP 153/70; TEMP 98.3
[2019-06-12 05:53] LABS: PLATELET COUNT 171 K/uL (152-353)
[2019-06-12 08:00] VITALS: BP 124/77; TEMP 97.9
[2019-06-12 12:00] VITALS: BP 115/60; TEMP 98
[2019-06-12 16:00] VITALS: BP 158/78; TEMP 97.8
[2019-06-12 20:00] VITALS: BP 168/84; TEMP 98
[2019-06-13] VITALS (8 sets, daily range): BP systolic 128–176; BP diastolic 66–87; TEMP 97.8–98.7
[2019-06-14 03:47] VITALS: BP 124/84; TEMP 98.1
[2019-06-14 05:16] LABS: PLATELET COUNT 183 K/uL (152-353)
[2019-06-14 05:29] LABS: POTASSIUM 3.6 mmol/L (3.6-5.2)
[2019-06-14 08:00] VITALS: BP 148/80; TEMP 97.8
[2019-06-14 12:00] VITALS: BP 133/77; TEMP 98.3
[2019-06-14 16:00] VITALS: BP 149/64; TEMP 98.1
[2019-06-14 20:00] VITALS: BP 141/76; TEMP 98.7
[2019-06-14 23:48] VITALS: BP 150/84; TEMP 98.3
[2019-06-15 04:00] VITALS: BP 138/83; TEMP 98.8
[2019-06-15 08:00] VITALS: BP 171/81; TEMP 98
[2019-06-15 16:00] VITALS: BP 127/82; TEMP 98.6
[2019-06-15 19:32] VITALS: BP 168/85; TEMP 98.5
[2019-06-15 23:42] VITALS: BP 148/76; TEMP 98.7
[2019-06-16 04:00] VITALS: BP 127/63; TEMP 98.2
[2019-06-16 05:43] LABS: PLATELET COUNT 199 K/uL (152-353)
[2019-06-16 08:17] VITALS: BP 163/8; TEMP 98
[2019-06-16 12:00] VITALS: BP 158/97; TEMP 98.3
[2019-06-16 16:00] VITALS: BP 136/75; TEMP 98.5
[2019-06-16 20:00] VITALS: BP 142/74; TEMP 98.3
[2019-06-17] VITALS: BP 141/72; TEMP 98.3
[2019-06-17 04:00] VITALS: BP 133/69; TEMP 97.9
[2019-06-17 08:00] VITALS: BP 122/60; BP 138/74; TEMP 97.6
[2019-06-17] MEDS ORDERED: D32000 UNI1 PO (08:13)
[2019-06-17] MEDS ORDERED: B12 FAST DIS5000 MCG PO (08:14)
[2019-06-17] MEDS ORDERED: CENTRUM SILVER PO (08:17)
[2019-06-17] MEDS ORDERED: OMEGA 3 500 5001 CAP PO (08:18)
[2019-06-17] MEDS ORDERED: ASPIRIN325 M1 PO (08:21)
[2019-06-17] MEDS ORDERED: DOCU100C10 PO (08:21)
[2019-06-17] MEDS ORDERED: LEVO0.08 PO (08:23)
[2019-06-17] MEDS ORDERED: AMBIEN 10MG TAB PO (08:24)
[2019-06-17] MEDS ORDERED: LORA10TA3 PO (08:26)
[2019-06-17] MEDS ORDERED: MECLIZINE25 MG PO (08:26)
[2019-06-17] MEDS ORDERED: PANTOPRAZOLE 40MG TA PO (08:27)
[2019-06-17] MEDS ORDERED: HM MAGNESIUM400 MG PO (08:28)
[2019-06-17] MEDS ORDERED: ATIVAN2 M1 PO (08:29)
== END 2019-06-17 10:20 | disposition home or self-care (01) | DRG 552 ==
LOC: ED 13:29 → MED/SURG 16:10
PROVIDERS: Internal Medicine; ADMIT Emergency Medicine
DX: M48.061 Spinal stenosis, lumbar region without neurogenic claudication (principal); K55.1 Chronic vascular disorders of intestine; E86.0 Dehydration; I48.91 Unspecified atrial fibrillation; I25.10 Atherosclerotic heart disease of native coronary artery without angina pectoris; E78.49 Other hyperlipidemia; J44.9 Chronic obstructive pulmonary disease, unspecified; M15.8 Other polyosteoarthritis; E03.8 Other specified hypothyroidism; E11.649 Type 2 diabetes mellitus with hypoglycemia without coma; F03.90 Unspecified dementia, unspecified severity, without behavioral disturbance, psychotic disturbance, mood disturbance, and anxiety; Z86.73 Personal history of transient ischemic attack (TIA), and cerebral infarction without residual deficits; R26.89 Other abnormalities of gait and mobility; Z91.81 History of falling; E83.42 Hypomagnesemia; W18.39XA Other fall on same level, initial encounter; Y92.89 Other specified places as the place of occurrence of the external cause
CPT/HCPCS: 36415; 80053; 81000; 82948; 83735; 84439; 84443; 85027; 87502; 93005; 96360; 96361; 96374; 99284; J1650; J2060; J3490; J7060